=== PATIENT | female | born 1995 | race Caucasian/White ===

== ENCOUNTER → 2017-02-09 | Outpatient (CLI) | payer BC ==
--- NOTE | 2017-02-09 09:48 | DI ---
History: Right upper quadrant abdominal pain Comparison: None: Findings: Proximal aorta has a been diameter of 1.7 cm. Mid abdominal aorta has a diameter of 1.4 cm. Distal abdominal aorta has a diameter of 1.2 cm. Bifurcation is normal with common iliac artery measured 0.8 cm bilaterally Liver is homogeneous and normal in echotexture. There are no focal lesions. There is no intrahepatic biliary ductal dilatation. Gallbladder is free of stones and sludge. No wall thickening. Common bile duct has a diameter of 4 mm No choledocholithiasis Right kidney measures 10.0 x 4.6 x 5.0 cm. Left kidney measures 9.6 x 5.7 x 5.0 cm. There are no echo genic or anechoic renal cortical lesions. There is no hydronephrosis. No shadowing calculi are demons trated. Spleen measures 7.3 x 3.3 x 3.1 cm. There are no splenic lesions. Pancreas is unremarkable in appearance. Impression: Unremarkable ultrasound examination of the abdomen. If there is clinical suspicion for gallbladder di sease, nuclear medicine hepatobiliary scan could be performed for functional analysis of the gallblad bernardo
== END ==
LOC: US 08:07
PROVIDERS: ATTEND Student in an Organized Health Care Education/Training Program
DX: R10.11 Right upper quadrant pain (principal); R10.31 Right lower quadrant pain; R19.7 Diarrhea, unspecified
CPT/HCPCS: 76700